=== PATIENT | female | born 1940 | race Caucasian/White ===

== ENCOUNTER 2022-06-05 23:31 | Emergency (ER) | payer OTHER ==
[~2022-06-05] VITALS: Ht 154.9 cm; Wt 72.6 kg
[2022-06-05 23:43] VITALS: BP_SYST 133
--- NOTE | 2022-06-05 23:46 | NUR ---
PT IS A 81 Y.O F BIB [facility] AMB # 8607 FR HOME C/O FALLING OFF THE BED AFTER HAVING A HEADACHE PRIOR AND HAVING DIZZINESS ALL THE TIME. PER EMT. IT WAS A WITNESSED FALL FROM [place] AND PT DIDN'T HIT HER HEAD. NKA. HX OF DM, HTN, EARLY ONSET ALZHEIMER'S. PLACED IN BED 4. GOWN PROVIDED. SAFE & HAZARD FREE ENVIRONMENT PROVIDED.
--- NOTE | 2022-06-05 23:53 | NUR ---
DOMINGO Mariscal at bedside.
[2022-06-06] MEDS ORDERED: ACETAMINOPHEN 500 MG TABLET PO ONE
--- NOTE | 2022-06-06 | NUR ---
Patient's daughter at bedside.
--- NOTE | 2022-06-06 | NUR ---
Patient A/Ox3, VSS, ambulatory, resp even and unlabored. Patient states "I had a headache before bed and I felt a little dizzy before I went to bed. After a little bit I dont know what happened, but I fell off my bed when I was trying to get up. I have a walker, but I fell. I think I'm okay right now." Patient reports not drinking water; drinks approx 2 cups a day. Patient connected to monitor. Patient resting in bed with safety procautions in place. Nad noted at this time.
--- NOTE | 2022-06-06 00:33 | NUR ---
Note undone in EDM - 06/06/22 at 0041 by SDEDVT Patient given written and verbal discharge instructions and verbalizes understanding. ER discussed with patient the results and treatment provided. Patient in stable condition. ID arm band removed. Wound care done; bleeding controlled. Rx of Bactrim DS given. Patient educated on pain management and to follow up with PMD. Pain Scale 0/10. Opportunity for questions provided and answered. Medication side effect fact sheet provided. Patient A/Ox4, VSS, ambulatory, resp even and unlabored. Patient in stable condition upon discharge.
[2022-06-06 00:37] LABS: BASOPHILS # (AUTO) 0.1 K/uL (0.0-0.2); BASOPHILS % (AUTO) 0.8 % (0.0-2.0); EOSINOPHILS % (AUTO) 0.1 % (0.0-4.0); HEMOGLOBIN 11.8 g/dL (12.0-16.0); LYMPHOCYTES # (AUTO) 1.2 K/uL (1.0-5.5); LYMPHOCYTES % (AUTO) 16.9 % (20.5-51.5); MEAN CORPUSCULAR HEMOGLOBIN 29 pg (27-31); MEAN CORPUSCULAR HGB CONC 34 % (32-36); MEAN CORPUSCULAR VOLUME 86 fL (79.0-98.0); MONOCYTES # (AUTO) 0.2 K/uL (0.0-1.0); MONOCYTES % (AUTO) 3.5 % (1.7-9.3); NEUTROPHILS # (AUTO) 5.5 K/uL (1.8-7.7); NEUTROPHILS % (AUTO) 78.7 % (40.0-70.0); PLATELET COUNT (AUTO) 231 K/uL (130-430); RED BLOOD CELL COUNT(AUTO) 4.07 MIL/uL (4.2-6.2); RED CELL DISTRIBUTION WIDTH 16.1 % (9.0-15.0)
[2022-06-06 00:45] LABS: ANION GAP 9 (5-15); CALCIUM 9.1 mg/dL (8.4-11.0); CHLORIDE 100 mmol/L (98-107); CREATININE 1.27 mg/dL (0.55-1.30); GLUCOSE 99 mg/dL (70-99); UREA NITROGEN, BLOOD 28 mg/dL (8-21)
--- NOTE | 2022-06-06 01:14 | NUR ---
Patient resting comfortably in bed with safety procautions in place. Nad noted at this time.
[2022-06-06] MEDS ORDERED: NAPR-1172 PO (02:23)
[2022-06-06 02:38] VITALS: BP_SYST 135
--- NOTE | 2022-06-06 02:38 | NUR ---
Patient given written and verbal discharge instructions and verbalizes understanding. ER MD discussed with patient the results and treatment provided. Patient in stable condition. ID arm band removed. Rx of Naproxen given. Patient educated on pain management and to follow up with PMD. Pain Scale 0/10. Opportunity for questions provided and answered. Medication side effect fact sheet provided. Patient A/Ox4, VSS, ambulatory, resp even and unlabored. Patient in stable condition and accompanied by son in law upon discharge.
== END 2022-06-06 02:38 | disposition home or self-care (01) ==
LOC: SED 23:31
DX: R51.9 Headache, unspecified (principal); R42 Dizziness and giddiness; Z79.899 Other long term (current) drug therapy
CPT/HCPCS: 36415; 70450-TC; 72125-TC; 76376; 80048; 85025; 99284